=== PATIENT | female | born 1960 | race Caucasian/White ===

== ENCOUNTER 2018-01-28 19:10 | Emergency (ER) | payer BC ==
[~2018-01-28] VITALS: Ht 154.9 cm; Wt 69.0 kg
[2018-01-28 19:27] VITALS: BP 136/69; PULSE 86; RESP 18; TEMP 97.9; O2SAT 97
[2018-01-28] MEDS ORDERED: XANA1TAB2 PO (19:36)
[2018-01-28] MEDS ORDERED: SODIUM CHLORIDE 0.9% FLUSH 10 ML FLUSH IV FLUSH PRN (20:00)
[2018-01-28 20:10] VITALS: O2SAT 98
[2018-01-28 20:22] LABS: AUTOMATED NEUTROPHIL # 6.5 TH/MM3 (1.8-7.7); BASOPHIL # 0.1 TH/MM3 (0-0.2); BASOPHIL % 0.8 % (0.0-2.0); EOSINOPHIL # 0.3 TH/MM3 (0-0.4); EOSINOPHIL % 2.4 % (0.0-4.0); HEMATOCRIT 39.5 % (35.0-46.0); HEMOGLOBIN 13.1 GM/DL (11.6-15.3); LYMPH % 32.2 % (9.0-44.0); LYMPHOCYTE # 3.5 TH/MM3 (1.0-4.8); MEAN CELL VOLUME 83.4 FL (80.0-100.0); MEAN CORPUSCULAR HEMOGLOBIN 27.7 PG (27.0-34.0); MEAN CORPUSCULAR HGB CONC 33.2 % (32.0-36.0); MEAN PLATELET VOLUME 8.3 FL (7.0-11.0); MONO % 5.2 % (0.0-8.0); MONOCYTE # 0.6 TH/MM3 (0-0.9); NEUT % 59.4 % (16.0-70.0); PLATELET COUNT 219 TH/MM3 (150-450); RED BLOOD COUNT 4.74 MIL/MM3 (4.00-5.30); RED CELL DISTRIBUTION WIDTH 12.3 % (11.6-17.2)
[2018-01-28 20:24] LABS: BILIRUBIN, URINE NEG (NEG); BLOOD, URINE TRACE (NEG); GLUCOSE,URINE NEG (NEG); KETONE, URINE NEG (NEG); NITRITE,URINE NEG (NEG); URINE COLOR YELLOW (YELLW/STRAW); URINE LEUKOCYTE ESTERASE NEG (NEG)
[2018-01-28 20:31] LABS: CHLORIDE 107 MEQ/L (98-107); SODIUM (NA) 143 MEQ/L (136-145)
[2018-01-28 20:32] LABS: BACTERIA, URINE FEW /hpf; MUCUS URINE FEW /lpf (OCC); SQUAMOUS EPITHELIAL CELL URINE 0-5 /hpf (0-5)
[2018-01-28 20:33] LABS: AMORPHOUS SEDIMENT, URINE FEW
[2018-01-28 20:34] LABS: CALCIUM 9.1 MG/DL (8.5-10.1)
[2018-01-28 20:35] LABS: ALBUMIN 3.8 GM/DL (3.4-5.0); BICARBONATE 30.9 MEQ/L (21.0-32.0); BLOOD UREA NITROGEN 18 MG/DL (7-18); GLUCOSE,RANDOM 120 MG/DL (74-106)
[2018-01-28 20:38] LABS: ALT (GPT) 24 U/L (10-53); AST (GOT) 20 U/L (15-37); CREATININE 0.57 MG/DL (0.50-1.00); GLOMERULAR FILTRATION RATE 110 ML/MIN (>89)
[2018-01-28 20:40] LABS: TOTAL BILIRUBIN ADULT 0.1 MG/DL (0.2-1.0); TOTAL PROTEIN 7.5 GM/DL (6.4-8.2)
[2018-01-28 20:41] LABS: ALKALINE PHOSPHATASE 119 U/L (45-117)
[2018-01-28 21:08] VITALS: BP 134/79; PULSE 78; RESP 18; O2SAT 97
--- NOTE | 2018-01-28 21:08 | RADRPT ---
EXAM DATE/TIME: 01/28/2018 20:38 [place] COMPARISON: No previous studies available for comparison. INDICATIONS : Left lower quadrant pain. Nausea, vomiting and diarrhea. Bloating. IV CONTRAST: 100 cc Omnipaque 350 (iohexol) IV ORAL CONTRAST: No oral contrast ingested. RADIATION DOSE: 10.22 CTDIvol (mGy) MEDICAL HISTORY : None SURGICAL HISTORY : Cholecystectomy. ENCOUNTER: Initial ACUITY: 2 days PAIN SCALE: 5/10 LOCATION: Left lower quadrant TECHNIQUE: Volumetric scanning of the abdomen and pelvis was performed. Using automated exposure control and ad justment of the mA and/or kV according to patient size, radiation dose was kept as low as reasonably achievable to obtain optimal diagnostic quality images. DICOM format image data is available electro nically for review and comparison. FINDINGS: LOWER LUNGS: The visualized lower lungs are clear. LIVER: Homogeneous density without lesion. There is no dilation of the biliary tree. No calcified gallston es. Previous cholecystectomy. SPLEEN: Normal size without lesion. PANCREAS: Within normal limits. KIDNEYS: Normal in size and shape. There is no mass, stone or hydronephrosis. ADRENAL GLANDS: Within normal limits. VASCULAR: There is no aortic aneurysm. BOWEL/MESENTERY: The stomach, small bowel, and colon demonstrate no acute abnormality. There is no free intraperitone al air or fluid. ABDOMINAL WALL: Within normal limits. RETROPERITONEUM: There is no lymphadenopathy. BLADDER: No wall thickening or mass. REPRODUCTIVE: No cysts or masses are demonstrated. No free fluid. Pelvic varicosities are seen, especially in the l eft adnexal region. INGUINAL: There is no lymphadenopathy or hernia. MUSCULOSKELETAL: Within normal limits for patient age. CONCLUSION: 1. No obstruction, inflammation or other acute abnormality demonstrated. 2. Pelvic varicosities, especially of the left gonadal vein. Mao Nice MD on January 28, 2018 at 21:04 Board Certified Radiologist. This report was verified electronically.
[2018-01-28] MEDS ORDERED: IOHEXOL 350 MG/ML 10 ML VIAL (for RAD DIAG) IVCONTRAST ONE (21:17)
--- NOTE | 2018-01-28 21:25 | PD ---
HPI Chief Complaint: GI Complaint Time Seen by Provider: 19:45 Travel History International Travel<30 days: No Contact w/Intl Traveler<30days: No Traveled to known affect area: No History of Present Illness HPI This is a 57-year-old female who presents to the emergency department with lower abdominal pain that started 2 days ago, constant, moderate severity feeling like her intestines or twisting and not associated with bloating. She says she has had pain like this before and happens about once a month but this is worse. She has had string-like stools. She denies any fevers or chills and denies any vomiting. She had a colonoscopy but it was a years ago. She is otherwise healthy. [facility] Past Medical History Anxiety: Yes Diminished Hearing: No Tetanus Vaccination: Unknown Influenza Vaccination: No ?: Not Menopausal: Yes Ectopic : Yes Past Surgical History Abdominal Surgery: Yes Cholecystectomy: Yes Gynecologic Surgery: Yes Social History Alcohol Use: No Tobacco Use: Yes Substance Use: No Allergies-Medications (Allergen,Severity, Reaction): Coded Allergies: No Known Allergies (Verified Allergy, Unknown, 01/28/18) Reported Meds & Prescriptions Reported Meds & Active Scripts Active Reported Xanax (Alprazolam) 1 Mg Tab 1 Mg PO Q8H PRN Review of Systems Except as stated in HPI: all other systems reviewed are Neg Physical Exam Narrative GENERAL:Well appearing, no acute distress SKIN: Focused skin assessment warm and dry. HEAD: Atraumatic. Normocephalic. EYES: Pupils equal and round. No injection or drainage. ENT: Moist mucous membranes NECK: Trachea midline. CARDIOVASCULAR: Regular rate and rhythm. No murmur appreciated. RESPIRATORY: Clear to auscultation. Breath sounds equal bilaterally. GASTROINTESTINAL: Abdomen soft, tender to palpation in the left lower quadrant with no rebound or guarding. MUSCULOSKELETAL: No obvious deformities. NEUROLOGICAL: Awake and alert. No obvious cranial nerve deficits. Moving all extremities. PSYCHIATRIC: Appropriate mood and affect; insight and judgment normal. Data Data Last Documented VS Vital Signs Date Time Temp Pulse Resp B/P (MAP) Pulse Ox O2 Delivery O2 Flow Rate FiO2 01/28/18 21:08 78 18 134/79 (97) 97 Room Air 01/28/18 19:27 97.9 Orders Orders Complete Blood Count With Diff (01/28/18 19:53) Comprehensive Metabolic Panel (01/28/18 19:53) Urinalysis - C+S If Indicated (01/28/18 19:53) Ct Abd/Pel W Iv Contrast(Rout) (01/28/18 19:53) Iv Access Insert/Monitor (01/28/18 19:53) Ecg Monitoring (01/28/18 19:53) Oximetry (01/28/18 19:53) Sodium Chloride 0.9% Flush (Ns Flush) (01/28/18 20:00) Iohexol 350 Inj (Omnipaque 350 Inj) (01/28/18 21:17) Labs Laboratory Tests Test 01/28/18 20:10 White Blood Count 11.0 TH/MM3 Red Blood Count 4.74 MIL/MM3 Hemoglobin 13.1 GM/DL Hematocrit 39.5 % Mean Corpuscular Volume 83.4 FL Mean Corpuscular Hemoglobin 27.7 PG Mean Corpuscular Hemoglobin Concent 33.2 % Red Cell Distribution Width 12.3 % Platelet Count 219 TH/MM3 Mean Platelet Volume 8.3 FL Neutrophils (%) (Auto) 59.4 % Lymphocytes (%) (Auto) 32.2 % Monocytes (%) (Auto) 5.2 % Eosinophils (%) (Auto) 2.4 % Basophils (%) (Auto) 0.8 % Neutrophils # (Auto) 6.5 TH/MM3 Lymphocytes # (Auto) 3.5 TH/MM3 Monocytes # (Auto) 0.6 TH/MM3 Eosinophils # (Auto) 0.3 TH/MM3 Basophils # (Auto) 0.1 TH/MM3 CBC Comment DIFF FINAL Differential Comment Urine Collection Type CLEAN CATCH Urine Color YELLOW Urine Turbidity SL CLOUDY Urine pH 6.0 Urine Specific Burk[place] 1.020 Urine Protein NEG mg/dL Urine Glucose (UA) NEG mg/dL Urine Ketones NEG mg/dL Urine Occult Blood TRACE Urine Nitrite NEG Urine Bilirubin NEG Urine Urobilinogen 0.2 MG/DL Urine Leukocyte Esterase NEG Urine RBC 4-9 /hpf Urine Squamous Epithelial Cells 0-5 /hpf Urine Amorphous Sediment FEW Urine Bacteria FEW /hpf Urine Mucus FEW /lpf Microscopic Urinalysis Comment CULT NOT INDICATED Blood Urea Nitrogen 18 MG/DL Creatinine 0.57 MG/DL Random Glucose 120 MG/DL Total Protein 7.5 GM/DL Albumin 3.8 GM/DL Calcium Level 9.1 MG/DL Alkaline Phosphatase 119 U/L Aspartate Amino Transf (AST/SGOT) 20 U/L Alanine Aminotransferase (ALT/SGPT) 24 U/L Total Bilirubin 0.1 MG/DL Sodium Level 143 MEQ/L Potassium Level 3.7 MEQ/L Chloride Level 107 MEQ/L Carbon Dioxide Level 30.9 MEQ/L Anion Gap 5 MEQ/L Estimat Glomerular Filtration Rate 110 ML/MIN MDM Medical Decision Making Medical Screen Exam Complete: Yes Emergency Medical Condition: Yes Interpretation(s) Labs are all reassuring Last 24 hours Impressions Abdomen/Pelvis CT 01/28/181952 Signed Impressions: Service Date/Time: Sunday, January 28, 2018 20:38 - CONCLUSION: 1. No obstruction, inflammation or other acute abnormality demonstrated. 2. Pelvic varicosities, especially of the left gonadal vein. Mao Nice MD Differential Diagnosis Diverticulitis, colitis, urinary tract infection, kidney stone, kidney infection , ovarian cyst rupture Narrative Course This is a 57-year-old female who presents to the emergency department with lower abdominal pain that has been going on for 2 days. Labs are reassuring and CT abdomen pelvis demonstrates some pelvic varicoses but otherwise is unremarkable. I think patient is appropriate for outpatient follow-up with gastroenterology. Diagnosis Primary Impression: Abdominal pain Qualified Codes: R10.32 - Left lower quadrant pain Patient Instructions: General Instructions Additional Instructions: If you develop severe or worsening abdominal pain, fever>100.4, persistent vomiting or inability to eat or drink return to the emergency department immediately. Follow up with your primary care physician in 1-2 days for a check-up. Med/Other Pt SpecificInfo: No Change to Meds Disposition: 01 DISCHARGE HOME Condition: Stable Tanisha Avery MD Jan 28, 2018 21:25
[2018-01-28 22:23] VITALS: BP 132/74; PULSE 74; RESP 18; O2SAT 97
== END 2018-01-28 22:26 | disposition home or self-care (01) ==
LOC: PHED 19:10
DX: R10.32 Left lower quadrant pain (principal)
CPT/HCPCS: 74177; 80053; 81001; 85025; 99285; Q9967